=== PATIENT | female | born 1995 | race Caucasian/White ===

== ENCOUNTER 2017-04-06 11:18 | Emergency (ER) | payer MEDICAID ==
[~2017-04-06] VITALS: Ht 175.3 cm; Wt 63.5 kg
[2017-04-06 11:25] VITALS: BP_SYST 121
[2017-04-06 11:45] VITALS: BP_SYST 118
== END 2017-04-06 11:45 | disposition home or self-care (01) ==
LOC: SED 11:18
DX: J02.9 Acute pharyngitis, unspecified (principal)
CPT/HCPCS: 99283

== ENCOUNTER 2017-09-19 22:47 | Emergency (ER) | payer SELFPAY ==
[~2017-09-19] VITALS: Ht 170.2 cm; Wt 67.1 kg
[2017-09-19 22:58] VITALS: BP_SYST 135
[2017-09-19 23:26] VITALS: BP_SYST 135
== END 2017-09-19 23:26 | disposition home or self-care (01) ==
LOC: SED 22:47
DX: N60.12 Diffuse cystic mastopathy of left breast (principal); N60.11 Diffuse cystic mastopathy of right breast; Z87.891 Personal history of nicotine dependence
CPT/HCPCS: 99283